=== PATIENT | female | born 1980 | race Hispanic/Latino ===

== ENCOUNTER 2019-09-20 09:56 | Emergency (ER) | payer SELFPAY ==
[~2019-09-20] VITALS: Ht 167.6 cm; Wt 99.8 kg
--- NOTE | 2019-09-20 12:14 | Diagnostic Imaging Report ---
EXAMINATION: CHEST SINGLE (PORTABLE) INDICATION: Shortness of breath COMPARISON: None FINDINGS: LINES/TUBES:None LUNGS:The lungs are moderately inflated. Mild bibasilar patchy opacities. PLEURA:No pleural effusion or pneumothorax. MEDIASTINUM:The cardiomediastinal silhouette appears normal in size and shape. BONES/SOFT TISSUES:No acute osseous injury. ABDOMEN:No free air under the diaphragm. IMPRESSION: Mild bibasilar patchy opacities may represent subsegmental atelectasis however viral pneumonitis could have a similar appearance and should be excluded clinically. Signed by: Sanju Partida MD on 09/20/2019 12:11 PM
--- NOTE | 2019-09-20 12:48 | Emergency Department Note ---
History of Present Illnes History of Present Illness Chief Complaint: COVID PUI History of Present Illness This is a 38 year old female here for cough and subjective fever with chills over the last week. denies known exposure to COVID19. Historian: Patient Arrival Mode: Car Bilingual Medical Assistant Required: No Radiation: Reports non-radiation Severity: mild Onset quality: gradual Duration (how long): week(s) (1) Timing of current episode: intermittent Progression: waxing and waning Chronicity: new Context: Reports recent illness Relieving factors: none Exacerbating factors: none Associated symptoms: Reports cough, Reports fever/chills, Reports shortness of breath Treatments prior to arrival: none Past Medical/Family History Physician Review I have reviewed the patient's past medical and family history. Any updates have been documented here. Past Medical History Recent Fever: No Clinical Suspicion of Infectio: Yes New/Unexplained Change in Ment: No Past Medical History: None Past Surgical History: None Social History Smoking Cessation: Never Smoker Counseling Performed: No Alcohol Use: None Any Illegal Drug Use: No TB Exposure/Symptoms: No Physically hurt or threatened: No Other Any Pre-Existing Lines (PICC,: No Is patient up to date on immun: No Last Flu: UTD Last Pneumovax: N/A Review of Systems Review of Systems Constitutional: Reports as per HPI, Reports fever, Reports malaise EENTM: Reports no symptoms Cardiovascular: Reports no symptoms Respiratory: Reports as per HPI, Reports cough, Reports dyspnea Gastrointestinal: Reports no symptoms Genitourinary: Reports no symptoms Musculoskeletal: Reports no symptoms Integumentary: Reports no symptoms Neurological: Reports no symptoms Psychological: Reports no symptoms Endocrine: Reports no symptoms Hematological/Lymphatic: Reports no symptoms Physical Exam Related Data Allergies: Coded Allergies: No Known Allergies (Unverified , 09/20/19) Triage Vital Signs Vital Signs Date Time Temp Pulse Resp B/P (MAP) Pulse Ox O2 Delivery O2 Flow Rate FiO2 09/20/19 10:20 99.3 102 18 144/79 98 Vital signs reviewed: Yes Physical Exam CONSTITUTIONAL Constitutional: Present well-developed, Present well-nourished HENT HENT: Present normocephalic, Present atraumatic, Present oropharynx clear/moist, Present nose normal HENT L/R: Present left ext ear normal, Present right ext ear normal EYES Eyes: Reports PERRL, Reports conjunctivae normal NECK Neck: Present ROM normal PULMONARY Pulmonary: Present effort normal, Present breath sounds normal CARDIOVASCULAR Cardiovascular: Present regular rhythm, Present heart sounds normal, Present capillary refill normal, Present normal rate GASTROINTESTINAL Abdominal: Present soft, Present nontender, Present bowel sounds normal GENITOURINARY Genitourinary: Present exam deferred SKIN Skin: Present warm, Present dry MUSCULOSKELETAL Musculoskeletal: Present ROM normal NEUROLOGICAL Neurological: Present alert, Present oriented x 3, Present no gross motor or sensory deficits PSYCHOLOGICAL Psychological: Present mood/affect normal, Present judgement normal Results Laboratory Laboratory Laboratory Tests Test 09/20/19 11:03 Imaging Imaging results reviewed: Yes Impressions Procedure: [id number] DX/CHEST SINGLE (PORTABLE) Exam Date: 09/20/19 Exam Time: 1133 REPORT STATUS: Signed EXAMINATION: CHEST SINGLE (PORTABLE) INDICATION: Shortness of breath COMPARISON: None FINDINGS: LINES/TUBES:None LUNGS:The lungs are moderately inflated. Mild bibasilar patchy opacities. PLEURA:No pleural effusion or pneumothorax. MEDIASTINUM:The cardiomediastinal silhouette appears normal in size and shape. BONES/SOFT TISSUES:No acute osseous injury. ABDOMEN:No free air under the diaphragm. IMPRESSION: Mild bibasilar patchy opacities may represent subsegmental atelectasis however viral pneumonitis could have a similar appearance and should be excluded clinically. Signed by: Sanju Partida MD on 09/20/2019 12:11 PM Assessment & Plan Medical Decision Making MDM O2 sat normal, check cxr r/o pneumonia, check covid swab Reassessment Reassessment pt home, self-quarantine, proning, ZPak, f/u PCP Assessment & Plan Final Impression: (1) Viral syndrome (2) Pneumonitis Depart Disposition: HOME, SELF-CARE Last Vital Signs Date Time Temp Pulse Resp B/P (MAP) Pulse Ox O2 Delivery O2 Flow Rate FiO2 09/20/19 11:12 90 20 129/89 96 09/20/19 10:20 99.3 RUBEN MCCOLLUM MD Sep 20, 2019 12:48
[2019-09-20 12:50] VITALS: BP 121/72
== END 2019-09-20 12:57 | disposition home or self-care (01) ==
LOC: ER 09:56
DX: U07.1 COVID-19 (principal); R50.9 Fever, unspecified; R05 Cough; J18.9 Pneumonia, unspecified organism; B34.9 Viral infection, unspecified
CPT/HCPCS: 71045; 87635; 99284

== ENCOUNTER 2020-07-10 23:54 | Emergency (ER) | payer SELFPAY ==
[~2020-07-10] VITALS: Ht 167.6 cm; Wt 99.8 kg
[2020-07-11] MEDS ORDERED: DEXAMETHASONE 4 MG TAB PO STA (00:11)
[2020-07-11] MEDS ORDERED: KETOROLAC TROMETHAMINE 30 MG/ML VIAL IM STA (00:11)
[2020-07-11] MEDS ORDERED: ACETAMINOPHEN 325 MG TAB PO ONE (00:15)
[2020-07-11] MEDS ORDERED: KETOROLAC TROMETHAMINE 60 MG/2 ML VIAL ONE (00:24)
[2020-07-11] MEDS ORDERED: ACETAMINOPHEN 325 MG TAB ONE (00:24)
[2020-07-11] MEDS ORDERED: LIDOCAINE 4% PATCH TP ONE (00:25)
[2020-07-11] MEDS ORDERED: DEXAMETHASONE SOD PHOS 10 MG/1 ML VIAL ONE (00:25)
[2020-07-11 00:36] LABS: CLARITY,URINE TURBID (CLEAR); COLOR,URINE RED (YELLOW); KETONES,URINE NEGATIVE (NEGATIVE); LEUKOCYTE ESTERASE ,URINE TRACE (NEGATIVE); NITRITE,URINE NEGATIVE (NEGATIVE); PROTEIN,URINE DIPSTICK >=300 (NEGATIVE); URINE UROBILINOGEN 1 mg/dL (0.2 - 1)
[2020-07-11 00:40] LABS: BACTERIA,URINE FEW /HPF; EPITHELIAL CELLS,URINE FEW /LPF; RBC,URINE >50 /HPF (0-5)
[2020-07-11] MEDS ORDERED: LIDOCAINE 4% PATCH TP SCH (09:00)
== END 2020-07-11 01:30 | disposition home or self-care (01) ==
LOC: ER 07-11 00:13
DX: M54.5 Low back pain (principal); R39.15 Urgency of urination
CPT/HCPCS: 81001; 99283; J1100; J1885